=== PATIENT | female | born 1980 | race Two or more races ===

== ENCOUNTER 2016-06-07 18:22 | Emergency (ER) | payer MEDICAID ==
[~2016-06-07] VITALS: Ht 157.5 cm; Wt 59.0 kg
[2016-06-07 19:46] LABS: Basophils # (auto) 0 uL; Basophils % (auto) 0.3 % (0.0-2.0); Eosinophils # (auto) 0.1 uL; Eosinophils % (auto) 0.7 % (0.0-7.0); Hematocrit 38.9 % (36.0-46.0); Hemoglobin 12.4 g/dL (12.2-16.2); Lymphocytes # (auto) 2.5 uL; Lymphocytes % (auto) 20.6 % (10.0-50.0); Mean Corpuscular Hgb Conc. 31.8 g/dL (32.0-36.0); Mean Platelet Volume 7.2 fL (7.4-10.4); Monocytes # (auto) 0.6 uL; Monocytes % (auto) 5.3 % (0.0-12.0); Neutrophils # (auto) 8.9 uL; Neutrophils % (auto) 73.1 % (37.0-80.0); Platelet Count (auto) 380 10^3/uL (140-450); Red Cell Distribution Width 12.8 % (11.6-16.0); White Blood Cell 12.2 10^3/uL (4.4-10.8)
[2016-06-07 20:22] LABS: Urine Bilirubin Negative (Negative); Urine Color Yellow (Yellow); Urine Glucose Normal (Normal); Urine Ketone Negative (Negative); Urine Nitrite Negative (Negative); Urine RBC 640 /hpf (0 - 4); Urine Squamous Epithelial Cell FEW /hpf (<5); Urine Urobilinogen Normal (Negative)
[2016-06-07 20:24] LABS: Urine Blood 2+ /uL (Negative)
[2016-06-07 20:55] LABS: Albumin 3.8 g/dL (3.4-5.0); Calcium 8.5 mg/dL (8.5-10.1); Potassium 3.6 mmol/L (3.5-5.1)
[2016-06-07 20:57] LABS: BUN/Creatinine Ratio 27.9
[2016-06-07 21:24] LABS: Bilirubin, Total 0.2 mg/dL (0.2-1.0); Total Protein 7.7 g/dL (6.4-8.2)
[2016-06-08 04:14] VITALS: BP 98/55
[2016-06-08] MEDS ORDERED: IBUPROFEN 600 MG TAB PO ONE (04:30)
[2016-06-08] MEDS ORDERED: cefTRIAXone SOD 1,000 MG VL IM ONE (04:30)
== END 2016-06-08 04:31 | disposition home or self-care (01) ==
LOC: ER 18:24
DX: N39.0 Urinary tract infection, site not specified (principal)
CPT/HCPCS: 36415; 80053; 81001; 84702; 85025; 96372; 99284; J0696

== ENCOUNTER 2023-12-11 20:25 | Emergency (ER) | payer MEDICAID, OTHER ==
[~2023-12-11] VITALS: Ht 157.5 cm; Wt 69.4 kg
[2023-12-11 20:45] VITALS: BP 130/86; PULSE 88; RESP 18; O2SAT 97
== END 2023-12-11 22:52 | disposition left against medical advice (07) ==
LOC: ER 20:25
DX: S61.217A Laceration without foreign body of left little finger without damage to nail, initial encounter (principal); Z53.21 Procedure and treatment not carried out due to patient leaving prior to being seen by health care provider; W22.8XXA Striking against or struck by other objects, initial encounter; Y93.89 Activity, other specified; Y92.89 Other specified places as the place of occurrence of the external cause; Y99.0 Civilian activity done for income or pay